=== PATIENT | female | born 1975 | race American Indian/Alaskan Native ===

== ENCOUNTER 2017-09-21 10:33 | Outpatient (CLI) | payer MEDICAID ==
--- NOTE | 2017-09-22 15:22 | Magnetic Resonance Report ---
FINAL REPORT EXAM: MR PELVIS WO/W CON HISTORY: PELVIC PAIN,BLEEDING TECHNIQUE: Multiplanar multisequence pre and post gadolinium MR imaging of the pelvis was performed Comparison: None FINDINGS: Patient's menstrual status is not reported. The uterus is normally anteverted, measuring 11.5 x 7.5 x 8.4 centimeters. There is endometrial stripe thickening to 2 centimeters. There are cervical nabothian cysts. There is no definite disruption of the cervical stroma. There is a left anterior uterine wall submucosal 1.7 x 2.3 x 2.4 centimeter peripherally enhancing lesion abutting endometrial stripe. There is a posterior left uterine body 2.1 x 2.2 x 3.8 centimeter sub serosal peripherally enhancing mass. There is a right lateral uterine body intra myometrial 2 x 2 x 1.9 centimeter lesion. None of these mass lesions distort the endometrial stripe. There is trace free pelvic fluid. The myometrium is heterogeneous. There is no retroperitoneal or iliac adenopathy. There is a crenated appearing left ovarian 1.5 centimeter cyst. IMPRESSION: Enlarged uterus is normally anteverted. Diffusely heterogeneous myometrium with 3 discrete uterine fibroids. There is a left anterior uterine fundal submucosal 1.7 x 2.3 x 2.4 centimeter fibroid which abuts the endometrium which may contribute to pelvic bleeding. Two of the fibroids are sub serosal including posterior left uterine body/junction with the cervix 2.1 x 2.2 x 3.8 centimeter and right lateral uterine body 2 x 1.9 centimeter lesion. Endometrial stripe is thickened at between 20 and 22 millimeters. There is trace free pelvic fluid. There are multiple cervical nabothian cysts. There is no definite disruption of the cervical low signal intensity T2 stroma. Normal appearance of the ovaries.
== END 2017-09-21 10:34 | disposition home or self-care (01) ==
LOC: MRI 10:33
PROVIDERS: ATTEND Radiology Vascular & Interventional Radiology
DX: D25.0 Submucous leiomyoma of uterus (principal); D25.2 Subserosal leiomyoma of uterus; N88.8 Other specified noninflammatory disorders of cervix uteri
CPT/HCPCS: 72197